=== PATIENT | female | born 1965 | race Caucasian/White ===

== ENCOUNTER 2017-03-13 09:08 | Outpatient (RCR) | payer SELFPAY ==
[2017-02-18 01:07] VITALS: BP 136/85; PULSE 80; RESP 16; TEMP 36.3
[2017-03-13 15:34] VITALS: BP 142/83; PULSE 68; RESP 18; TEMP 36.6; BMI 31.8
--- NOTE | 2017-03-13 23:33 | PN.PCM_ITS ---
(1) Left ankle sprain Status: Acute Code(s): S93.402A - Sprain of unspecified ligament of left ankle , initial encounter (2) Venous insufficiency of both lower extremities Status: Chronic Code(s): I87.2 - Venous insufficiency (chronic) (peripheral) (3) Swelling of lower extremity Status: Chronic Code(s): M79.89 - Other specified soft tissue disorders (4) Edema of leg Status: Chronic Code(s): R60.0 - Localized edema (5) Sprain of left foot Status: Acute Code(s): S93.602A - Unspecified sprain of left foot, initial encounter (6) Venous ulcer of right leg Status: Resolved Code(s): I83.019 - Varicose veins of right lower extremity with ulcer of unspecified site Type of Wound Date of Service: 03/16/17 Chief Complaint: Chronic venous insufficiency, lower extremity swelling, lower extremity edema, lipodermatosclerosis, hyperpigmentation History of Wound: She also complains of an acute injury to the left lower extremity this is a 51-year-old female with a long-standing history of chronic venous insufficiency, venous hypertension with inflammation and ulceration postphlebitic syndrome with inflammation ulceration, lower extremity swelling and edema, and a venous ulceration on the right supramalleolar area returns to clinic today. She denies recent drainage and think the wound is healed. She denies pain. She denies recent illness. She is a previous patient of Dr. Ballard. Due to her new work schedule she is only able to follow-up with any physician visits on Saturday. In which she fell and went to the [facility] emergency room. She had x-rays obtained. She has been elevating and wearing a boot immobilization device. She has pain at both the side of her ankle and her midfoot. Progress of Wound: Healed today - Physical Exam Vital Signs Temp Pulse Resp BP 97.8 F 68 18 142/83 H 03/13/17 15:34 03/13/17 15:34 03/13/17 15:34 03/13/17 15:34 General: Alert, Oriented x3, Cooperative HEENT: Atraumatic Extremities: No cyanosis, Capillary Refill Less than 3 Seconds - All digits bilateral, No Calf Tenderness - Negative Meri and Smith sign bilateral, Diminished Peripheral Pulses - Palpable dorsalis pedis pulse bilateral nonpalpable PT pulses bilateral probable secondary to edema, Edema - Bilateral lower extremity, Tenderness - Plan palpation to lateral ankle ligaments and distal fibula. Pain on palpation to the dorsal lateral tarsometatarsal articulation. And not particularly with valgus varus stress test. Pain apprehension is noted. She does have some edema and diffuse ecchymosis To the foot and ankle. No pain on palpation to the medial gutter of proximal fibula. Skin: - - Full epithelialization is noted and there is no ulcer. There is no erythema, no streaking, no infection, no necrosis, no bogginess on palpation bilateral Wound Measurements and Assessment WC - Nurse 1 - General Ulcer Measurement Start: 03/13/17 15:34 Freq: Status: Active Protocol: Activity Type Activity Date Activity User E-Sign Co-Sign Detail Recorded Client Recorded Date Recorded By Document 03/13/17 15:34 [id number] 03/13/17 15:37 03/13/17 15:34 Wound Center Nurse 1 [Ulcer Assessment Protocol: [email or web address].[email or web address].LOC] #1 Right Medial Lower Extremity -Combined with other wound No -Current Size (cm) - Length 0 -Current Size (cm) - Width 0 -Current Size (cm) - Depth 0 -Total Square Cm 0 -Photo Taken Yes -Epithelialization Large 67-100% -Tunneling No -Undermining/Tunneling No -Circular Undermining No [Edema Assessment] -Lower Limb Edema Present Yes -Right Calf (cm) 42.3 -Right Ankle (cm) 22.1 WC - Nurse 2 - General Ulcer CM Notes Start: 03/13/17 15:34 Freq: Status: Active Protocol: Activity Type Activity Date Activity User E-Sign Co-Sign Detail Recorded Client Recorded Date Recorded By Document 03/13/17 15:58 [id number] 03/13/17 15:59 03/13/17 15:58 Pain Scale: 0-10 Numeric [Pain] -Is Patient Pain Free? Yes Musculoskeletal: No Tenderness to Palpation of Joints or Extremities, Muscle Wasting, - - Negative Meri and Smith sign bilateral Neurological: Sensory exam intact to light touch and pain, - Psych/Mental Status: Normal Affect, Appropriate Debridement Note Post-Debridement Measurements/Treatment MAVERICK - Nurse 2 - General Ulcer CM Notes Start: 03/13/17 15:34 Freq: Status: Active Protocol: Activity Type Activity Date Activity User E-Sign Co-Sign Detail Recorded Client Recorded Date Recorded By Document 03/13/17 15:58 [id number] 03/13/17 15:59 JF 03/13/17 15:58 Pain Scale: 0-10 Numeric Is Patient Pain Free? Yes No debridement was completed today - No ulcer noted today Assessment/Plan Assessment: Edema lower extremity. History of nonhealing ulcers to lower extremity. Venous insufficiency Plan: The patient has been counseled as to the appropriate conservative treatment measures relative to her venous disease. Her performed a chart review and performed her clinical examination today. She has been advised to elevate her lower extremities as much as possible. To discontinue all dressing care because the wound is healed patient is to refrain from prolonged idle sitting. Activity has been encouraged. Patient has been encouraged to lose weight. We are to continue compression to the right lower extremity by means of graduated compression stockings, worn daily. She has, however, been given a prescription for graduated compression stockings of 20-30 mmHg, as have been obtained. Compliance was discussed. He do not recommend dressing care because the wound has healed. They do recommend she continue with this compression dressing and also offered her other options including either compression wraps with a zipper or CircAid wrap or donning device. She elects to proceed with CircAid type garment and a prescription was provided today. Preauthorization will be initiated. I also recommend following up with the vascular surgeons to see if any intervention is possible. It sounds like this process has been initiated with Dr. Ballard I recommend she follow-up. She is not able to make it to Dr. Ballard's clinic at the time he is there; a referral to Dr. Frye was provided. I also evaluated her acute left lower extremity injury at this time. Her x-rays are reviewed from the hospital which did not demonstrate any acute fractures. She understands that she still may have a hairline fracture or other more serious ligamentous or tendinous injuries. I recommend going to her period of initial mobilization and protection with a cam walker boot. This is already been fitted with her. I recommend she remain nonweightbearing with an assistive device. Reassessment and new x-rays will be obtained at her follow-up visit. Again she is only able to follow-up for this condition on Saturday and I will refer her to Dr. Montenegro at the foot and ankle center who can further follow her long-term for this condition. To follow -up at the foot and ankle center in 2 weeks or sooner if she has any questions or concerns. She will be discharged from the wound center at this time because her wound is healed.
== END 2017-03-20 23:59 ==
LOC: WC 09:08
PROVIDERS: Family Provider Nurse Practitioner; PCP Nurse Practitioner; Visit Provider Podiatrist
DX: I87.2 Venous insufficiency (chronic) (peripheral) (principal); R60.0 Localized edema; M79.89 Other specified soft tissue disorders
CPT/HCPCS: 99213; G0463

== ENCOUNTER 2017-03-17 15:54 | Emergency (ER) | payer SELFPAY ==
[2017-03-17 15:55] VITALS: BP 156/92; PULSE 111; RESP 20; TEMP 36.4; O2SAT 99; BMI 33.5
--- NOTE | 2017-03-17 15:59 | RAD_ITS ---
STUDY: X-RAY - LEFT ANKLE REASON FOR EXAM: Female, 51 years old. Worsening ankle pain. TECHNIQUE: 3 view(s) of the ankle. COMPARISON: March 12, 2017 FINDINGS: Normal visualized distal tibia and fibula. Normal medial and lateral malleoli. Normal tibiotalar articulation and ankle mortise. There is a stable inferior calcaneal spur. The visualized subtalar, talonavicular, calcaneocuboid and tarsal articulations are normal. The soft tissue structures are unremarkable. RAD/Ankle min 3 Views IMPRESSION: No acute pathology. Electronically Signed: Adrian Rae MD at 16:40 EST , Service support ,
--- NOTE | 2017-03-17 17:28 | RAD_ITS ---
STUDY: X-RAY - LEFT FOOT CLINICAL: Female, 51 years old. Ankle sprain. Pain getting worse. TECHNIQUE: 3 view(s) of the foot. COMPARISON: August 01, 2016 FINDINGS: There is a stable inferior calcaneal spur. Normal visualized subtalar, talonavicular, calcaneocuboid, tarsal and tarsometatarsal articulations. Normal metatarsi. Normal metatarsophalangeal joint of the great toe. Normal tibial and fibular sesamoid bones. Normal interphalangeal joint of the great toe. Normal phalanges of the great toe. Normal second through fifth metatarsophalangeal joints. Normal interphalangeal joints and phalanges of the lesser toes. The soft tissue structures are unremarkable. RAD/Foot min 3 Views IMPRESSION: Stable calcaneal spur. No acute pathology. Electronically Signed: Adrian Rae MD at 17:49 EST , Service support ,
--- NOTE | 2017-03-17 17:41 | ED.VISSUMM ---
- ER Visit Summary Date of Service: 03/17/17 Chief Complaint: Left foot and ankle pain History of Present Illness: The patient is a 51 F presenting with left foot and ankle pain ?1 week. She states she was seen in the ER last Saturday had x-rays of her ankle and was diagnosed with an ankle sprain. She denies injury. She states she stands all day at work. She has increasing pain in her heel and the bottom of her left foot. She denies fever or other complaints. Physical Examination: Vitals are stable. Patient is afebrile. Alert no acute distress. HEENT exam is unremarkable. Lungs are clear and equal bilaterally. Heart is regular rate and rhythm. Extremities left foot plantar surface tenderness with no erythema. Normal cap refill and normal pulse. Skin is warm and dry. Remainder of exam is unremarkable. Emergency Department Course and Treatment: X-ray of the left ankle was obtained and shows no acute process. X-ray of the left foot was obtained and shows no acute process. I suspect plantar fasciitis. She was given a postop shoe. She is advised to continue Tylenol as she states she is unable to take NSAIDs. She is given podiatry for follow-up. Advised return ED for worsening complaints. Disposition: Discharge home Impression: Left foot pain suspect plantar fasciitis This note was generated with [employer] dictation software. It may contain incorrect words, spelling, and punctuation that were not noted in review of the chart prior to signing ED Disposition - Plan for ED Patient: Disposition: Home or Assisted Living Chief Complaint: Lower Extremity Injury Instructions: ED Sprain Foot Referrals: Louise Warren DPM [STAFF PHYSICIAN] - Bianca Roper [Primary Care Provider] -
--- NOTE | 2017-03-17 17:47 | ED.DEP ---
ED Disposition - Plan for ED Patient: Chief Complaint: Lower Extremity Injury Instructions: ED Sprain Foot Referrals: Bianca Roper [Primary Care Provider] - Louise Warren DPM [STAFF PHYSICIAN] -
[2017-03-17 18:51] VITALS: BP 136/71; PULSE 95; RESP 16
== END 2017-03-17 18:52 | disposition home or self-care (01) ==
LOC: ED 17:31
PROVIDERS: Emergency Provider Emergency Medicine; Family Provider Nurse Practitioner; PCP Nurse Practitioner
DX: M79.672 Pain in left foot (principal); M25.572 Pain in left ankle and joints of left foot; K21.9 Gastro-esophageal reflux disease without esophagitis; I10 Essential (primary) hypertension; E78.00 Pure hypercholesterolemia, unspecified; I48.91 Unspecified atrial fibrillation; I87.2 Venous insufficiency (chronic) (peripheral); Z86.718 Personal history of other venous thrombosis and embolism; Z86.711 Personal history of pulmonary embolism; Z79.01 Long term (current) use of anticoagulants; Z79.899 Other long term (current) drug therapy
CPT/HCPCS: 73610; 73630; 99283

== ENCOUNTER → 2017-10-18 12:34 | Outpatient (CLI) | payer SELFPAY | PROVIDERS: Family Provider Nurse Practitioner; PCP Nurse Practitioner; Visit Provider Nurse Practitioner | DX: M54.5 Low back pain (principal) | CPT/HCPCS: 72110 ==

== ENCOUNTER → 2018-04-21 12:46 | Outpatient (CLI) | payer SELFPAY ==
[2018-04-21 14:28] LABS: Absolute Lymphocyte Count 1.03 X10^3/ul (0.83-4.51); Absolute Neutrophil Count 3.8 X10^3/uL (2.0-7.7); Basophil# 0.03 X10^3/uL; Basophil% 0.5 % (0-1); Eosinophil# 0.24 X10^3/uL; Eosinophils% 4.2 % (0-5); Hematocrit 36.5 % (37-47); Hemoglobin 11.1 g/dl (12.0-15.0); Lymphocyte # 1.03 X10^3/ul (4.0); Mean Corp Hgb Conc 30.4 g/gl (32-36); Mean Corpuscular Hgb 27.8 pg (27.0-32.0); Mean Corpuscular Volume 91.5 fL (81-99); Mean Platelet Vol. 9.6 fl (6.2-12.0); Monocyte# 0.56 X10^3/uL; Monocyte% 9.8 % (0-10); Neutrophil # 3.84 X10^3/uL (2.7-7.7); Neutrophil % 67.3 % (47-70); Platelet Count 346 K/mm3 (150-450); RBC Distribution Width CV 14.9 % (11.6-14.6); RBC Distribution Width SD 48.3 fl (35.1-43.9); Red Blood Count 3.99 M/mm3 (4.2-5.4); White Blood Count 5.7 K/mm3 (4.4-11.0)
[2018-04-21 14:30] LABS: POSITIVE COUNT NO; POSITIVE DIFFERENTIAL NO; POSITIVE MORPHOLOGY NO
[2018-04-21 14:38] LABS: ALB/GLOB Ratio 0.9 RATIO (0.9-2.4); AST(SGOT) 22 U/L (15-37); Alanine Aminotransfer ALT/SGPT 19 U/L (13-56); Albumin, Serum 3.5 g/dL (3.2-5.0); Alkaline Phosphatase 118 U/L (45-117); Anion Gap 9 (5-15); BUN 10 mg/dL (7-18); Calcium,Total 8.8 mg/dL (8.5-10.1); Chloride 109 mmol/L (98-107); Cholesterol 161 mg/dL (200); Creatinine, Serum 0.77 mg/dL (0.55-1.02); EST Glomerular Filtration Rate 83 mL/min (>60); Est Glom Filt Rate - Afr Amer 100 mL/min (>60); Glucose 97 mg/dL (74-106); High Density Lipoprotein 38 mg/dL; Potassium 3.7 mmol/L (3.5-5.1); Protein, Total 7.5 g/dL (6.4-8.2); Sodium Level 142 mmol/L (136-145); Triglycerides 255 mg/dL; Very Low Density Lipoprotein 51 mg/dL (5-40)
[2018-04-21 14:57] LABS: International Normalized Ratio 3.5; Prothrombin Time (Protime)PT. 35.1 SECONDS (11.7-14.9)
== END ==
PROVIDERS: Family Provider Nurse Practitioner; PCP Nurse Practitioner
DX: D68.2 Hereditary deficiency of other clotting factors (principal); E78.5 Hyperlipidemia, unspecified
CPT/HCPCS: 36415; 80053; 80061; 85025; 85610

== ENCOUNTER → 2018-04-23 09:50 | Outpatient (CLI) | payer SELFPAY ==
--- NOTE | 2018-04-23 09:57 | VDLE_ITS ---
Reason For Study: DVT RIGHT LEFT GSV is normal. GSV is normal. CFV is compressible, spontaneous, phasic, CFV is compressible, spontaneous, phasic, competent and demonstrates normal competent, and demonstrates normal augmentation. augmentation. FV is compressible, spontaneous, phasic, FV is compressible, spontaneous, phasic, competent and demonstrates normal competent and demonstrates normal augmentation. augmentation. POP V is compressible, spontaneous, phasic, POP V is compressible, spontaneous, phasic, competent and demonstrates normal competent and demonstrates normal augmentation. augmentation. T/P Trunk is compressible. T/P Trunk is compressible. PTV is compressible. PTV is compressible. RT PerV is compressible. LT PerV is compressible. Procedure Exam performed in department. A preliminary report was called and/or faxed to TENZIN GARCIA. Interpretation Summary Deep veins of the lower extremities are bilaterally patent and compressible segmentally. There is no evidence of deep vein thrombosis on either side. Valvular competence appears intact within the proximal deep venous systems bilaterally. The greater saphenous veins appear bilaterally patent and compressible segmentally. Ordering Physician: TENZIN GARCIA Referring Physician: SABRINA MORIN Performed By: Itzel Mark, SHANI, RVT
== END ==
PROVIDERS: Family Provider Nurse Practitioner; PCP Nurse Practitioner
DX: I82.403 Acute embolism and thrombosis of unspecified deep veins of lower extremity, bilateral (principal); D68.2 Hereditary deficiency of other clotting factors
CPT/HCPCS: 93970

== ENCOUNTER → 2019-03-17 12:54 | Outpatient (CLI) | payer SELFPAY ==
--- NOTE | 2019-03-17 12:55 | CT_ITS ---
STUDY: CT ABDOMEN AND PELVIS WITH CONTRAST REASON FOR EXAM: Female, 53 years old. LOWER RIGHT ABD MASS X 1 YEAR AFTER FALLING IN REHAB, PT STATES HEMATOMA THEY SAID SHOULD HAVE GONE AWAY AFTER 6 MONTHS, STILL GETTING LARGER. RADIATION DOSAGE (If Supplied By Facility): CTDIvol = ( 18.74 ) mGy, DLP = ( 1335.61 ) mGycm TECHNIQUE: Transaxial images were obtained from the dome of the diaphragm to the symphysis pubis without oral contrast. IV- 100 ML ISOVUE 300. was administered. Sagittal and coronal images were reconstructed. Individualized dose optimization techniques were used for this CT. COMPARISON: None. FINDINGS: Minimal increased markings in the right middle lobe suggestive of atelectasis and/or scarring. Prior CABG. There is decreased attenuation of the liver consistent with steatosis. Mild hepatomegaly. There are surgical clips in the gallbladder fossa consistent with a prior cholecystectomy. Normal spleen. Normal pancreas. Normal bilateral adrenal glands. Normal right kidney. Normal left kidney. Normal visualized stomach. Normal small intestine. Normal colon. The appendix is visualized and appears normal. There is diffuse atherosclerotic calcification of the abdominal aorta, without a demonstrated aneurysm. Normal inferior vena cava. Normal retroperitoneum. Normal urinary bladder. There is an 8.3 cm x 18.1 cm x 11 cm predominantly well-defined fluid collection in the subcutaneous tissues overlying the right lower anterior abdominal wall and upper pelvic region. Focal liver of increased density is seen along its medial posterior aspect. This most likely represents a resolving hematoma. There are diffuse degenerative changes of the visualized lumbar spine. Levoscoliosis. CT/Abdomen/Pelvis WITH Contrast IMPRESSION: 8.3 cm x 18.1 cm x 11 cm predominantly fluid collection in subcutaneous tissues overlying the right lower anterior abdominal wall and upper pelvic region as described. This may represent a resolving hematoma. Electronically Signed: Flavio Christina, at 13:53 EST , Service support ,
== END ==
PROVIDERS: Family Provider Nurse Practitioner; PCP Nurse Practitioner; Referring Provider Nurse Practitioner; Visit Provider Nurse Practitioner
DX: R19.03 Right lower quadrant abdominal swelling, mass and lump (principal)
CPT/HCPCS: 74177; Q9967

== ENCOUNTER → 2019-04-27 11:19 | Outpatient (CLI) | payer SELFPAY ==
[2019-03-30 13:45] VITALS: BMI 31.8
[2019-04-27 15:43] LABS: Absolute Lymphocyte Count 1.14 X10^3/uL (0.83-4.51); Absolute Neutrophil Count 4.2 X10^3/uL (2.0-7.7); Basophil# 0.04 X10^3/uL; Basophil% 0.6 % (0-1); Eosinophils% 4.8 % (0-5); Hematocrit 40.9 % (37-47); Hemoglobin 12.7 g/dL (12.0-15.0); Lymphocyte # 1.14 X10^3/ul (4.0); Lymphocyte % 18.3 % (19-41); Mean Corp Hgb Conc 31.1 g/dL (32-36); Mean Corpuscular Hgb 27.6 pg (27.0-32.0); Mean Corpuscular Volume 88.9 fL (81-99); Mean Platelet Vol. 9.9 fl (6.2-12.0); Monocyte# 0.53 X10^3/uL; Monocyte% 8.5 % (0-10); NRBC Flagged by Analyzer 0 % (0-5); Neutrophil # 4.19 X10^3/uL (2.7-7.7); Neutrophil % 67.5 % (47-70); Platelet Count 297 K/mm3 (150-450); RBC Distribution Width CV 14.9 % (11.6-14.6); RBC Distribution Width SD 47.9 fl (35.1-43.9); White Blood Count 6.2 K/mm3 (4.4-11.0)
[2019-04-27 16:10] LABS: ALB/GLOB Ratio 0.9 RATIO (0.9-2.4); AST(SGOT) 25 U/L (15-37); Alanine Aminotransfer ALT/SGPT 28 U/L (13-56); Albumin, Serum 3.6 g/dL (3.2-5.0); Alkaline Phosphatase 118 U/L (45-117); Anion Gap 7 (5-15); BUN 14 mg/dL (7-18); BUN/Creat Ratio 17.6 RATIO (10-20); Calcium,Total 9.2 mg/dL (8.5-10.1); Chloride 105 mmol/L (98-107); Cholesterol 277 mg/dL (200); EST Glomerular Filtration Rate 79 mL/min (>60); Est Glom Filt Rate - Afr Amer 96 mL/min (>60); Glucose 95 mg/dL (74-106); High Density Lipoprotein 43 mg/dL; Potassium 3.9 mmol/L (3.5-5.1); Protein, Total 7.6 g/dL (6.4-8.2); Sodium Level 140 mmol/L (136-145); Thyroid Stim Hormone (TSH) 2.06 uIU/mL (0.358-3.74); Triglycerides 280 mg/dL; Very Low Density Lipoprotein 56 mg/dL (5-40)
[2019-04-29 05:06] LABS: HEPATITIS B SURFACE AG Negative (Negative); Hepatitis A AB, Total Negative (Negative); Hepatitis A IgM Antibody Negative (Negative); Hepatitis B Core AB IgM Negative (Negative); Hepatitis B Core Ab Total Negative (Negative); Hepatitis C Ab 0.2 s/co ratio (0.0-0.9)
[2019-04-29 13:13] LABS: Hep B Surface Antibodies Non Reactive (.)
== END ==
PROVIDERS: PCP Nurse Practitioner; Referring Provider Nurse Practitioner; Visit Provider Nurse Practitioner
DX: K76.0 Fatty (change of) liver, not elsewhere classified (principal)
CPT/HCPCS: 36415; 80053; 80061; 84443; 85025; 86704; 86705; 86706; 86708; 86709; 86803; 87340

== ENCOUNTER 2019-12-09 11:30 | Outpatient (RCR) | payer MEDICAID, SELFPAY ==
[2019-03-30 13:45] VITALS: BMI 31.8
== END 2019-12-19 23:59 ==
LOC: NS 11:30
PROVIDERS: PCP Nurse Practitioner; Visit Provider Nurse Practitioner
DX: Z71.3 Dietary counseling and surveillance (principal)
CPT/HCPCS: 97802; 97803

== ENCOUNTER 2020-01-06 13:30 | Outpatient (RCR) | payer MEDICAID, SELFPAY ==
[2019-03-30 13:45] VITALS: BMI 31.8
== END 2020-01-18 23:59 ==
LOC: NS 13:30
PROVIDERS: PCP Nurse Practitioner; Visit Provider Nurse Practitioner
DX: Z71.3 Dietary counseling and surveillance (principal)
CPT/HCPCS: 97803

== ENCOUNTER 2020-01-25 10:38 | Outpatient (RCR) | payer MEDICAID, SELFPAY ==
[2019-03-30 13:45] VITALS: BMI 31.8
== END 2020-02-18 23:59 ==
LOC: NS 10:38
PROVIDERS: PCP Nurse Practitioner; Visit Provider Nurse Practitioner
DX: Z71.3 Dietary counseling and surveillance (principal)
CPT/HCPCS: 97803

== ENCOUNTER 2020-03-16 11:30 | Outpatient (RCR) | payer MEDICAID, SELFPAY ==
[2019-03-30 13:45] VITALS: BMI 31.8
== END 2020-03-20 23:59 ==
LOC: NS 11:30
PROVIDERS: PCP Nurse Practitioner; Visit Provider Nurse Practitioner
DX: Z71.3 Dietary counseling and surveillance (principal)
CPT/HCPCS: 97803

== ENCOUNTER 2020-03-31 10:15 | Outpatient (RCR) | payer MEDICAID, SELFPAY ==
[2019-03-30 13:45] VITALS: BMI 31.8
== END 2020-04-17 23:59 ==
LOC: NS 10:15
PROVIDERS: PCP Nurse Practitioner; Visit Provider Nurse Practitioner
DX: Z71.3 Dietary counseling and surveillance (principal)
CPT/HCPCS: 97803

== ENCOUNTER 2020-04-20 11:50 | Outpatient (RCR) | payer MEDICAID, SELFPAY ==
[2019-03-30 13:45] VITALS: BMI 31.8
== END 2020-04-20 23:59 | disposition home or self-care (01) ==
LOC: NS 11:50
PROVIDERS: PCP Nurse Practitioner; Visit Provider Nurse Practitioner
DX: Z71.3 Dietary counseling and surveillance (principal)
CPT/HCPCS: 97803

== ENCOUNTER → 2020-05-16 19:54 | Outpatient (CLI) | payer MEDICAID, SELFPAY ==
[2019-03-30 13:45] VITALS: BMI 31.8
== END ==
PROVIDERS: PCP Nurse Practitioner Family; Referring Provider Nurse Practitioner Family; Visit Provider Nurse Practitioner Family
DX: G47.33 Obstructive sleep apnea (adult) (pediatric) (principal)
CPT/HCPCS: 95811